=== PATIENT | female | born 1995 | race Hispanic/Latino ===

== ENCOUNTER 2020-10-07 19:56 | Inpatient (IN) | payer MEDICAID, OTHER, SELFPAY ==
[2020-10-07] MEDS ORDERED: Ondansetron PF 4 MG/2 ML Vial IVP PRN (21:07)
[2020-10-07] MEDS ORDERED: Butorphanol Tartrate 1 MG/ML VIAL SLOW IVP PRN (21:07)
[2020-10-07] MEDS ORDERED: NS / Oxytocin 40 units/1000ml 1,000 ML IV PRN (21:07)
[2020-10-07] MEDS ORDERED: hydrALAZINE 20 MG/ML VIAL SLOW IVP PRN (21:07)
[2020-10-07] MEDS ORDERED: Misoprostol 200 MCG TAB PR PRN (21:07)
[2020-10-07] MEDS ORDERED: Promethazine HCl 25 MG/ML VIAL IM PRN (21:07)
[2020-10-07] MEDS ORDERED: Acetaminophen 500 MG TAB PO PRN (21:07)
[2020-10-07] MEDS ORDERED: Lidocaine 1% (PF) 30 ML VIAL SC PRN (21:07)
[2020-10-07] MEDS ORDERED: Ibuprofen 800 MG TAB PO PRN (21:07)
[2020-10-07] MEDS ORDERED: Docusate 100 MG CAP PO PRN (21:07)
[2020-10-07 21:13] VITALS: BMI 40.6
[2020-10-07 21:47] LABS: Hemoglobin 9.5 g/dL (12.0-15.5); Mean Corpuscular HGB CONC 32.1 g/dL (32.0-36.0); Mean Corpuscular Hemoglobin 26.9 pg (27.0-33.0); Mean Corpuscular Volume 83.9 fl (81.6-98.3); Mean Platelet Volume 12.7 fl (7.4-10.4); RBC Distribution Width 14.9 % (11.5-14.5); Red Blood Cell (RBC) Count 3.53 10x6/uL (3.90-5.03); White Blood Cell (WBC) Count 7.9 10x3/uL (3.5-10.5)
[2020-10-07 21:51] LABS: Platelet Count 162 10x3/uL (150-450)
[2020-10-07 22:18] LABS: Hep B Surf Ag Non-Reactive S/CO (NonReactive)
[2020-10-07 22:19] LABS: Syphilis Antibody Nonreactive (Nonreactive); Syphilis Antibody Index 0.06 S/CO (<1.00 Non-Reactive)
[2020-10-07 22:22] LABS: HBSAg Index 0.37 S/CO (0-0.99)
[2020-10-07] MEDS: Lactated Ringer's 1,000 ML IV SCH (22:59)
[2020-10-07] MEDS: Misoprostol 100 MCG TAB VAG SCH (23:20)
[2020-10-08] MEDS: Misoprostol 100 MCG TAB VAG SCH ×2 (03:00→13:33)
[2020-10-08] MEDS ORDERED: Fentanyl 4 mcg/Bup 0.1% Cadd 100 ML ONE (04:18)
[2020-10-08] MEDS: Lactated Ringer's 1,000 ML IV SCH (05:38)
[2020-10-08] MEDS ORDERED: Promethazine HCl 25 MG/ML VIAL IM PRN (05:54)
[2020-10-08] MEDS ORDERED: ePHEDrine 50 MG/ML VIAL SLOW IVP PRN (05:54)
[2020-10-08] MEDS ORDERED: diphenhydrAMINE 50 MG/ML VIAL IVP PRN (05:54)
[2020-10-08] MEDS ORDERED: Acetaminophen 325 MG TAB PO PRN (05:54)
[2020-10-08] MEDS ORDERED: Lactated Ringer's 500 ML IV PRN (05:54)
[2020-10-08] MEDS ORDERED: Ondansetron PF 4 MG/2 ML Vial IVP PRN (05:54)
[2020-10-08] MEDS ORDERED: Eucerin (Mineral Oil/Petrolatum,White) 30 gm Jar TOP PRN (05:54)
[2020-10-08] MEDS ORDERED: Naloxone HCl 0.4 mg/ml Vial IVP PRN ×2 (05:54)
[2020-10-08] MEDS ORDERED: Fentanyl 4 mcg/Bupivacaine 0.1% Cassette 100 ML EPIDURAL SCH (06:00)
[2020-10-08] MEDS ORDERED: Communication Order-Pharmacy FS SCH (06:00)
[2020-10-08 06:44] LABS: Amphetamine Not Detected (NotDetected); Barbiturates Screen Not Detected (NotDetected); Benzodiazepine Screen Not Detected (NotDetected); Cocaine Metabolite Screen Not Detected (NotDetected); Methadone Not Detected (NotDetected); Methamphetamine Not Detected (NotDetected); Opiate Screen Not Detected (NotDetected); Oxycodone Screen Not Detected (NotDetected); Phencyclidine (PCP) Not Detected (NotDetected); THC/Cannabinoid Screen Not Detected (NotDetected); Tricyclic Screen Not Detected (NotDetected)
[2020-10-08] MEDS: NS w/ Oxytocin 30 units 500 ML IVPB SCH ×2 (07:45→11:25)
[2020-10-08] MEDS ORDERED: Methylergonovine 0.2 MG/ML VIAL ONE (09:39)
[2020-10-08] MEDS ORDERED: Misoprostol 200 MCG TAB ONE (09:39)
[2020-10-08] MEDS ORDERED: Lidocaine 1% (PF) 30 ML VIAL ONE (09:40)
[2020-10-08 11:12] LABS: Creatinine, Urine 123.09 mg/dL (47-110)
[2020-10-08 11:31] LABS: #Monocytes 0.5 10x3/uL (0.0-1.1); %Basophils 0.3 % (0.0-2.0); %Eosinophils 0.2 % (0.0-6.0); %Lymphocytes 14.1 % (18.0-47.0); %Monocytes 4.5 % (0.0-10.0); %Neutrophils 80.4 % (40.0-75.0); Hemoglobin 10.1 g/dL (12.0-15.5); Mean Corpuscular Hemoglobin 27.1 pg (27.0-33.0); Mean Corpuscular Volume 84.7 fl (81.6-98.3); Platelet Count 142 10x3/uL (150-450); RBC Distribution Width 14.8 % (11.5-14.5); Red Blood Cell (RBC) Count 3.73 10x6/uL (3.90-5.03); White Blood Cell (WBC) Count 11.2 10x3/uL (3.5-10.5)
[2020-10-08 11:36] LABS: ALT (SGPT) 11 U/L (8-55); AST (SGOT) 15 U/L (5-34); Alkaline Phosphatase 178 U/L (40-110); Anion Gap 15 mmol/L (10-20); BUN (Urea Nitrogen) 8 mg/dL (7.0-18.7); Bilirubin, Total 0.1 mg/dL (0.2-1.2); Calc. Creatinine Clearance 199 mL/min (70-130); Calcium 8.9 mg/dL (7.8-10.44); Carbon Dioxide 20 mmol/L (22-29); Chloride 105 mmol/L (98-107); Globulin 3.9 g/dL (2.4-3.5); Glucose 93 mg/dL (70-105); Potassium 4.5 mmol/L (3.5-5.1); Protein, Total 6.9 g/dL (6.0-8.3); Sodium 135 mmol/L (136-145); Uric Acid 5.7 mg/dL (2.6-6.0)
[2020-10-08 14:25] LABS: SARS-CoV-2 PCR by NAA Not Detected (NotDetected)
[2020-10-08] MEDS: Ibuprofen 800 MG TAB PO SCH ×2 (14:27→20:28)
[2020-10-08] MEDS ORDERED: Bupivacaine 0.25% HCL 30 ML VIAL ONE (19:46)
[2020-10-09] MEDS: Ibuprofen 800 MG TAB PO SCH ×3 (05:26→20:02)
[2020-10-09 05:55] LABS: Hemoglobin 9.4 g/dL (12.0-15.5)
[2020-10-10 01:19] VITALS: BP 136/76; TEMP 98.1
[2020-10-10] MEDS: Ibuprofen 800 MG TAB PO SCH (04:36)
== END 2020-10-10 12:01 | disposition home or self-care (01) | DRG 807 ==
LOC: CSHLD 19:56 → CSHPP 10-08 13:00
PROVIDERS: ADMIT Family Medicine; ATTEND Family Medicine
PROC: 10E0XZZ Delivery of Products of Conception, External Approach (ICD-10-PCS; principal; 2020-10-08)
PROC: 0HQ9XZZ Repair Perineum Skin, External Approach (ICD-10-PCS; 2020-10-08)
DX: O24.429 Gestational diabetes mellitus in childbirth, unspecified control (principal); Z37.0 Single live birth; Z3A.39 39 weeks gestation of pregnancy; Z20.822 Contact with and (suspected) exposure to COVID-19; O99.214 Obesity complicating childbirth; E66.9 Obesity, unspecified; O99.02 Anemia complicating childbirth; D50.9 Iron deficiency anemia, unspecified; O99.62 Diseases of the digestive system complicating childbirth; K21.9 Gastro-esophageal reflux disease without esophagitis; O69.81X0 Labor and delivery complicated by cord around neck, without compression, not applicable or unspecified; O76 Abnormality in fetal heart rate and rhythm complicating labor and delivery; O70.0 First degree perineal laceration during delivery; O14.95 Unspecified pre-eclampsia, complicating the puerperium
CPT/HCPCS: 36415; 36416; 51701; 51702; 76815; 80053; 80306; 82570; 84156; 84550; 85014; 85018; 85025; 85027; 86780; 86850; 86900; 86901; 87340; 87635; J2001; J2210; J2590; S0020; U0003; U0005